=== PATIENT | female | born 1965 | race Caucasian/White ===

== ENCOUNTER → 2024-05-12 06:26 | Day surgery (SDC) | payer OTHER, SELFPAY | LOC: GI 06:26 | PROVIDERS: ATTENDING PHYSICIAN Internal Medicine | DX: K44.9 Diaphragmatic hernia without obstruction or gangrene (principal); K30 Functional dyspepsia; R14.0 Abdominal distension (gaseous) | CPT/HCPCS: 43239; 88305; 88342 ==

== ENCOUNTER → 2024-08-02 08:55 | Outpatient (REF) | payer OTHER, SELFPAY | LOC: MRI 3T 08:55 | PROVIDERS: ATTENDING PHYSICIAN Internal Medicine; FAMILY PHYSICIAN Internal Medicine | DX: R14.0 Abdominal distension (gaseous) (principal); R63.4 Abnormal weight loss; R11.0 Nausea | CPT/HCPCS: 72197; 74183; A9585 ==

== ENCOUNTER → 2025-01-04 13:10 | Outpatient (REF) | payer SELFPAY | LOC: HWRAD 13:10 | PROVIDERS: ATTENDING PHYSICIAN Internal Medicine | DX: E78.2 Mixed hyperlipidemia (principal) | CPT/HCPCS: 75571 ==

== ENCOUNTER 2025-01-05 21:45 | Emergency (ER) | payer OTHER, SELFPAY ==
[2025-01-05 21:52] VITALS: BP 147/90
[2025-01-05 22:18] LABS: % Basophils 0.7 % (0-2); % Immature Granulocytes 0.2 % (0-0.5); % Lymphocytes 33.5 % (20.5-51.1); % Monocytes 9.7 % (1.7-9.3); % Neutrophils 54.9 % (42.2-75.2); Absolute Lymphocytes 1.4 10^3/uL (1.2-3.4); Absolute Monocytes 0.4 10^3/uL (0.1-0.6); Absolute Neutrophils 2.3 10^3/uL (1.4-6.5); Hematocrit 40.8 % (37.0-47.0); Hemoglobin 14.4 g/dL (12.0-16.0); Mean Corp Hgb Conc. 35.3 g/dL (33.0-37.0); Mean Corpuscular Hgb 30.7 pg (27.0-31.0); Mean Platelet Volume 9.6 fL (7.4-10.4); Nucleated Red Blood Cells % 0 %; Platelet Count 204 10^3/uL (130-400); Red Blood Cell Count 4.69 10^6/uL (4.20-5.40); Red Cell Dist. Width 11.8 % (11.5-14.5); White Blood Cell Count 4.2 10^3/uL (4.8-10.8)
[2025-01-05 22:37] LABS: ALT (SGPT) 21 U/L (0-35); AST (SGOT) 22 U/L (14-36); Albumin 4.5 g/dl (3.5-5.0); Alkaline Phosphatase 70 U/L (38-126); Blood Urea Nitrogen 16 mg/dl (7-17); Calcium 10.1 mg/dl (8.4-10.2); Carbon Dioxide 26 mmol/L (22-30); Chloride 102 mmol/L (98-107); Glucose 124 mg/dl (70-99); Potassium 4.2 mmol/L (3.5-5.1); Sodium 136 mmol/L (135-145); Total Bilirubin 0.9 mg/dl (0.2-1.3); Total Protein 7.1 g/dl (6.3-8.2); eGFR > 60.00
[2025-01-06 01:37] VITALS: BMI 25.7
--- NOTE | 2025-01-06 01:57 | ED.GENMED ---
History of Present Illness
General
Chief Complaint: Dizziness
Source: patient and spouse
Exam Limitations: none
Time Seen by Provider: 01/06/25 01:04
Nursing documentation reviewed up to this point in time: agreed with
History of Present Illness
History of Present Illness:
This is a 59-year-old woman who has history of anxiety, seasonal allergies, GERD who complains of intermittent dizziness, lightheadedness that has been ongoing throughout the day today. Dizziness and lightheadedness worse with moving about
accompanied with intermittent nausea without vomiting. She is also noted some left parasternal chest pain that has been ongoing for several weeks. Following with her PCP and underwent coronary calcium score Friday of this week, 2 days ago. Thus
far has not received the results. She exercises on a regular basis without symptomatology.
Tonight symptoms worsen with intermittent chills, and sweats but was not running a fever. She does admit to some sinus congestion, intermittent pressure and crackling sensation in her right ear. She took a dose of Zyrtec tonight and currently
symptoms are markedly improved. Have resolved.
She has history of rectal prolapse surgical repair in September 2021 and since then notes some chronic constipation for which she takes 2 Dulcolax tablets at nighttime which generally affords a normal to somewhat soft and occasionally loose bowel
movement in the morning. She does admit to several loose stools this morning but has been attempting to keep up with her fluids throughout the day.
She denies abdominal pain. No hematochezia.
Past History
Past History
ED Past Medical History: GERD, Hypercholesterolemia and Psychiatric
ED Past Surgical History: None
Social History
Tobacco: Non-smoker
Alcohol: None
Personal:
Living: with family
Family History
Family History: Other (Noncontributory)
Phy Exam
Physical Exam
Physical Exam:
GENERAL: 59-year-old woman appears her stated age, bright and alert, pleasant, appears in no acute distress. is accompanying.
EYE: pupils equal and reactive. Extraocular muscles intact. Test of skew is negative. Anicteric
NECK: Supple, nontender, no meningismus, no significant adenopathy.
ENT: posterior pharynx is clear, oral mucosa is moist. Right TM is retracted without effusion. Left TM is clear. Nares have mildly boggy pale blue turbinates.
CARDIAC: Regular rate and rhythm. no murmur.
LUNGS: Clear breath sounds bilaterally, no acute respiratory distress, no wheezes/rales/rhonchi
ABDOMEN: Soft, nondistended, without focal tenderness, normoactive BS.
NEUROLOGICAL: Alert and oriented x3, no focal neuro deficits. Gait is prather and steady. Andrew-Hallpike is negative.
SKIN: Warm and dry, normal color, skin intact. No rash.
MUSCULOSKELETAL: No C/C/E. peripheral pulses are full and equal b/l. No palpable tenderness.
PSYCH: Normal and appropriate interaction.
Course
Orders/Labs/Results
Orders:
Orders
01/05/25 21:59
Electrocardiogram (*1) Urgent
Reason for Study: Vertigo / Dizzy
EKG- Treatment ONCE
01/05/25 22:11
CMP [Comprehensive Metabolic Panel] Urgent
Complete Blood Count/With Diff Urgent
01/06/25 01:34
Troponin I Urgent
Abnormal Lab Results
01/05/25
22:11
WBC 4.2 L 10^3/uL
(4.8-10.8)
Monocytes % 9.7 H %
(1.7-9.3)
Glucose 124 H mg/dl
(70-99)
01/05/25 22:11
01/05/25 22:11
Vital Signs
Initial and Last Documented VS:
Initial Vital Signs
Temp Pulse Resp BP Pulse Ox
97.4 F 68 22 147/90 100
01/05/25 21:52 01/05/25 21:52 01/05/25 21:52 01/05/25 21:52 01/05/25 21:52
Last Documented Vital Signs
Temp Pulse Resp BP Pulse Ox
97.4 F 65 16 148/86 100
01/05/25 21:52 01/06/25 02:30 01/06/25 02:30 01/06/25 02:30 01/06/25 02:30
MDM/Problems Addressed
Differential Diagnosis Includes:
Concern for vertigo, history most consistent with benign paroxysmal positional vertigo. Other consideration is electrolyte abnormality, arrhythmia, ACS.
She has had intermittent left parasternal chest pain, an ongoing issue, which appears to be a separate issue from dizziness, lightheadedness that began this afternoon.
EKG is unremarkable and unchanged from previous September 2021.
Labs thus far unremarkable. Will plan to check troponin.
Will continue to observe for return of symptoms.
MDM/Problems Addressed:
History of GERD, chronically maintained on Dexilant, follows with Dr. Montaño
History of anxiety, chronically maintained on lorazepam 2 mg at bedtime.
History of allergic rhinitis, maintained on Zyrtec.
Chronic conditions affecting care: Psychiatric illness and Other (GERD)
*Pulse Oximetry
Patient hypoxic: no
*EKG
Interpreted by ED Provider?: Yes
Interpretation: normal
Comparison EKG: no changes (Unchanged from previous September 2021)
Rate: normal
Rhythm: sinus
Mead: normal axis
Interval: normal interval
QRS Pattern: normal QRS
Ischemia: no ischemia
*French Lecturer Interpretation
Rate: normal
*Critical Care Note
Total Time (30-74mins, 75-104mins- exclusive of procedures): Not Applicable
Update Note
Update Note:
02:35
Patient remains comfortable, asymptomatic. No further return of dizziness, lightheadedness. No chest discomfort.
Eager to be discharged to home.
Troponin is negative.
As above, I suspect an element of vertigo as cause for her symptoms.
A prescription for Antivert has been provided for as needed dizziness.
Discussed importance of remaining well-hydrated on a daily basis.
Coronary calcium score results provided to patient. Total score is elevated at 174.45. Recommend she follow-up with her PCP with results and to discuss further evaluation.
ED Attending Note
-
Portions of this chart may have been created with voice recognition software.� Occasional wrong word or��sound alike� substitutions may have occurred due to the inherent limitations of voice recognition software.
Discharge Plan
Departure
Patient Disposition: Home (Routine Discharge)
Date of Disposition: 01/06/25
Time of Disposition: 02:37
Patient with high blood pressure during this ER visit?: No
Condition: Good
Discharge Problem:
acute dizziness
Instructions: Dizziness
Prescriptions:
New
meclizine 25 mg tablet
25 mg PO QID PRN (Reason: dizziness, nausea) Qty: 20 0RF
No Action
cetirizine 10 MG tablet
10 mg PO DAILY
lorazepam 2 MG tablet
2 mg PO HS
zinc 50 MG tablet
50 mg PO DAILY
gyhco-[id number]-uct-[id number]-mkureiu-ast [MegaRed [place]-3 Krill Oil] 1 EACH capsule
1 ea PO DAILY
L.acidoph,paracasei,B.animalis 1 EACH capsule
1 ea PO DAILY
Vitafusion
1 tab PO DAILY
dexlansoprazole [Kapidex] 60 MG capsule,biphase delayed releas
60 mg PO DAILY
hydrocodone-acetaminophen 1 TABLET tablet
1 - 2 tab PO Q4HPRN PRN (Reason: moderate to severe pain) Qty: 20 0RF
acetaminophen 325 MG tablet
650 mg PO Q4HWA 0RF
Referrals:
[facility], [Other]
Matthew Jaime, [Family Provider] - Call in 1-3 days for appt
Interventions
Interventions:
*Risk Screen - Suicide Last Done: 01/05/25 21:52
*General Assessment Last Done: 01/05/25 21:52
*Neglect/Abuse Screening Last Done: 01/05/25 21:52
ED- Fall Risk Assessment Last Done: 01/06/25 01:37
*ED COVID-19 Vaccine History Last Done: 01/06/25 01:37
*Nursing Disposition Last Done: 01/06/25 02:57
ED- Neurological Assessment Last Done: 01/06/25 01:43
ED- Cardiac Assessment Last Done: 01/06/25 01:43
ED Swallowing Screen Last Done: 01/06/25 01:43
Discharge Date and Time
Discharge Date/Time: 01/06/25 02:58
Print Language: AUSTRIAN
[2025-01-06 02:12] LABS: Troponin I < 0.012 ng/ml
[2025-01-06 02:30] VITALS: BP 148/86
== END 2025-01-06 02:58 | disposition home or self-care (01) ==
LOC: EMR 21:45
PROVIDERS: Emergency Medicine; EMERGENCY PHYSICIAN Emergency Medicine; FAMILY PHYSICIAN Internal Medicine
DX: R42 Dizziness and giddiness (principal); K21.9 Gastro-esophageal reflux disease without esophagitis; E78.00 Pure hypercholesterolemia, unspecified; F41.9 Anxiety disorder, unspecified; Z79.899 Other long term (current) drug therapy
CPT/HCPCS: 99284; 80053; 84484; 85025; 93005

== ENCOUNTER 2025-04-13 06:26 | Day surgery (SDC) | payer OTHER, SELFPAY | END 2025-04-13 09:14 | disposition home or self-care (01) | LOC: GI 06:26 | PROVIDERS: ATTENDING PHYSICIAN Internal Medicine | DX: Z12.11 Encounter for screening for malignant neoplasm of colon (principal); K64.9 Unspecified hemorrhoids; K57.30 Diverticulosis of large intestine without perforation or abscess without bleeding; K63.5 Polyp of colon; Z80.0 Family history of malignant neoplasm of digestive organs | CPT/HCPCS: 45380; 88305 ==